=== PATIENT | male | born 1990 | race Two or more races ===

== ENCOUNTER 2019-09-22 14:56 | Inpatient (IN) | payer BC, MEDICAID, OTHER, SELFPAY ==
[~2019-09-22] VITALS: Ht 172.7 cm; Wt 69.5 kg
--- NOTE | 2019-09-22 15:13 | NUR ---
EKG DONE IN TRIAGE
[2019-09-22 15:53] LABS: BASOPHILS # (AUTO) 0.02 x10^3/uL (0-0.1); BASOPHILS % (AUTO) 0 % (0-1); EOSINOPHILS # (AUTO) 0.01 x10^3/uL (0-0.4); EOSINOPHILS % (AUTO) 0 % (1-7); LYMPHOCYTES # (AUTO) 0.91 x10^3/uL (1-3.4); LYMPHOCYTES % (AUTO) 6 % (22-44); MD NO; MEAN CORPUSCULAR HEMOGLOBIN 31.1 pg (27.5-34.5); MEAN CORPUSCULAR HGB CONC 34.2 g/dL (33.2-36.2); MEAN CORPUSCULAR VOLUME 90.9 fL (81-97); MEAN PLATELET VOLUME 8.9 fL (7.4-10.4); MONOCYTES % (AUTO) 6 % (2-9); NEUTROPHILS # (AUTO) 12.71 x10^3/uL (1.8-6.8); NEUTROPHILS % (AUTO) 87 % (42-75); PLATELET COUNT 287 x10^3/uL (130-400); RED BLOOD COUNT 4.39 x10^6/uL (4.38-5.82)
[2019-09-22 16:00] LABS: ALBUMIN 3.2 g/dL (3.4-5.0); ANION GAP 15 mmol/L (5-15); CALCIUM 9.7 mg/dL (8.5-10.1); CHLORIDE 97 mmol/L (98-107)
[2019-09-22 16:03] LABS: ALANINE AMINOTRANSFERASE 13 U/L (12-78); ALKALINE PHOSPHATASE 199 U/L (45-117); BILIRUBIN,TOTAL 1.1 mg/dL (0.2-1.0); CREATININE 0.84 mg/dL (0.7-1.3); TOTAL PROTEIN 8.5 g/dL (6.4-8.2)
--- NOTE | 2019-09-22 16:17 | NUR ---
NEONATAL DOCTOR: PT AMBULATORY WITH STEADY GAIT TO ROOM AT THIS TIME. LUIS
--- NOTE | 2019-09-22 16:33 | NUR ---
PATIENT ARRIVES UNABLE TO VOID THAT BEGAN AROUND 5 THIS MORNING. BLADDER SCANNED HIM AFTER HE VOIDED AND HE REGISTERS >999ML IN BLADDER SCAN X3 SCANS. HE IS TYPE ONE DIABETIC. HE HAS BACK PAIN.
[2019-09-22] MEDS ORDERED: LIDOCAINE 2%,20 ML JEL.PF.APP MM ONE ×2 (16:48→17:00)
[2019-09-22 16:59] LABS: HCT (SEDRATE) 38.1 % (39.2-51.8)
[2019-09-22 17:10] LABS: MICROSCOPIC INDICATED
[2019-09-22 17:17] LABS: CULTURE INDICATED? YES
--- NOTE | 2019-09-22 18:06 | NUR ---
PATIENT IN RADIOLOGY
--- NOTE | 2019-09-22 18:17 | NUR ---
STILL IN RADIOLOGY
[2019-09-22] MEDS ORDERED: SODIUM CHLORIDE 0.9% 1,000ML IVBOLUS ONE ×2 (18:30→19:30)
--- NOTE | 2019-09-22 18:33 | NUR ---
PATIENT STILL IN RADIOLOGY
[2019-09-22] MEDS ORDERED: GADOTERATE 7.5 MMOL/15 ML SYR ONE (18:36)
--- NOTE | 2019-09-22 18:57 | NUR ---
report from [facility]. assuming care at this time.
--- NOTE | 2019-09-22 19:29 | NUR ---
Spoke with Ganesh from OR who states he will call in OR team for a Thoracic Laminectomy per Dr. Corona and Dr. Kirkland's (Neurosurgey) request.
[2019-09-22] MEDS ORDERED: CEFTRIAXONE PMX 1GM/50ML 50 ML IV ONE (19:30)
[2019-09-22] MEDS ORDERED: SODIUM CHLORIDE FLUSH 10ML SYR IVF ONE (19:30)
[2019-09-22] MEDS ORDERED: VANCOMYCIN 1,600 MG in SODIUM CHLORIDE 0.9% 250 ML IV ONE (19:30)
[2019-09-22] MEDS ORDERED: PHARMACOKINETIC CONSULTATION MC ONE ×2 (19:30→23:45)
[2019-09-22] MEDS ORDERED: VANCOMYCIN PER PHARMACY MC PRN ×2 (19:30→20:00)
[2019-09-22] MEDS ORDERED: MORPHINE SULFATE 4 MG/ML, 1ML ONE (19:33)
[2019-09-22] MEDS ORDERED: CEFTRIAXONE PMX 1GM/50ML 50 ML ONE (19:33)
[2019-09-22] MEDS ORDERED: TOUJEO SOLOSTAR (19:38)
[2019-09-22] MEDS ORDERED: NOVALOG (19:38)
[2019-09-22] MEDS: MORPHINE SULFATE 4 MG/ML, 1ML IVPush PRN (19:40)
--- NOTE | 2019-09-22 19:45 | NUR ---
report to or.
[2019-09-22] MEDS ORDERED: BACITRACIN 50,000 UNIT ONE ×2 (19:48→20:43)
[2019-09-22] MEDS ORDERED: BUPIVACAINE/PF-EPI 0.5% 1:200K ONE (19:48)
--- NOTE | 2019-09-22 19:48 | NUR ---
pt back from or. pt states pain is 8/10 in mid back. vss. lab to bs to draw bc. per supervisor laboratory animal facility, pt's iv was displaced during mri. piv reestablished and 2nd set bs drawn. new orders received. iv rocephin and vanco started. Dr. Corona to bs to update on results and poc. mri revealed spinal abscess. plan for or then icu. or tech to bs for transport at this time.
[2019-09-22] MEDS: AMPICILLIN/SULBACTAM 3 GM in SODIUM CHLORIDE 0.9% 100 ML IV SCH (20:00)
--- NOTE | 2019-09-22 20:00 | NUR ---
pt received 1g rocephin prior to transfer to or. order changed to unasyn after administration of rocephin. unasyn not given. edmd aware. or tech aware.
[2019-09-22] MEDS ORDERED: MIDAZOLAM 1 MG/ML, 2ML ONE (20:07)
[2019-09-22] MEDS ORDERED: FENTANYL PF 250 MCG/5ML ONE (20:07)
[2019-09-22] MEDS ORDERED: VANCOMYCIN 1,000 MG ONE (20:43)
[2019-09-22] MEDS ORDERED: SUCCINYLCHOLINE 20 MG/ML, 10ML ONE (20:46)
[2019-09-22] MEDS ORDERED: SUGAMMADEX 200 MG/2 ML IVPush ONE (20:46)
[2019-09-22] MEDS ORDERED: DEXAMETHASONE 4 MG/ML, 1ML ONE (20:46)
[2019-09-22] MEDS ORDERED: PROPOFOL 10 MG/ML, 20ML ONE (20:46)
[2019-09-22] MEDS ORDERED: ONDANSETRON 2MG/ML, 2ML ONE (20:46)
[2019-09-22 21:20] LABS: AMPHETAMINE SCREEN, URINE Negative (Negative); BARBITURATE SCREEN, URINE Negative (Negative); BENZODIAZEPINE SCREEN, URINE Negative (Negative); CANNABINOID SCREEN, URINE Positive (Negative); COCAINE SCREEN, URINE Positive (Negative); METHADONE SCREEN, URINE Negative (Negative); OPIATE SCREEN, URINE Positive (Negative)
[2019-09-22] MEDS ORDERED: FENTANYL PF 100 MCG/2ML IV PRN (21:30)
[2019-09-22] MEDS ORDERED: hydrALAzine 20 MG/ML, 1ML IV PRN (21:30)
[2019-09-22] MEDS ORDERED: ONDANSETRON 2MG/ML, 2ML IV PRN (21:30)
[2019-09-22] MEDS ORDERED: LORazepam 2 MG/ML, 1ML IVPush PRN (21:30)
[2019-09-22] MEDS ORDERED: OXYcodone 5 MG/5 ML ORAL.SOL UDC PO PRN (21:30)
[2019-09-22] MEDS ORDERED: KETOROLAC 30 MG/1 ML IV PRN (21:30)
[2019-09-22] MEDS ORDERED: MEPERIDINE/PF 25MG/ML,1ML IVPush PRN (21:30)
[2019-09-22] MEDS ORDERED: HYDROmorphone 2 MG/ML, 1ML IVPush PRN (21:30)
[2019-09-22] MEDS ORDERED: ACETAMINOPHEN 325 MG TABLET PO PRN (21:30)
[2019-09-22] MEDS ORDERED: LABETALOL 5MG/ML, 20ML IV PRN (21:30)
[2019-09-22] MEDS ORDERED: MAGNESIUM HYDROXIDE 8%, 30ML UDC PO PRN (23:00)
[2019-09-22] MEDS: CYCLOBENZAPRINE 10 MG TABLET PO SCH (23:00)
[2019-09-22] MEDS ORDERED: NS + 20MEQ KCL 1,000 ML IV SCH (23:00)
[2019-09-22] MEDS ORDERED: PROMETHAZINE 25 MG/ML, 1ML IM PRN (23:00)
[2019-09-22] MEDS ORDERED: ONDANSETRON 2MG/ML, 2ML IVPush PRN (23:00)
[2019-09-22] MEDS ORDERED: PHARMACY MAY ADJ FOR RENAL FX MC PRN (23:00)
[2019-09-22] MEDS ORDERED: SENNA/DOCUSATE TABLET PO PRN (23:00)
[2019-09-22] MEDS ORDERED: DIPHENHYDRAMINE 50 MG CAPSULE PO PRN (23:00)
[2019-09-22] MEDS ORDERED: INSULIN REGULAR 100 UNITS/ML, 3ML VIAL SQ-INSULIN SCH (23:05)
[2019-09-22] MEDS ORDERED: INSULIN SINGLE DOSE, ER ONE (23:12)
[2019-09-22] MEDS ORDERED: FENTANYL PF 100 MCG/2ML ONE (23:20)
[2019-09-22] MEDS ORDERED: OXYcodone 5 MG/5 ML ORAL.SOL UDC ONE (23:21)
[2019-09-22] MEDS ORDERED: PHARMACOKINETIC MONITORING MC PRN (23:45)
[2019-09-23] MEDS: MORPHINE SULFATE 4 MG/ML, 1ML IVPush PRN ×2 (00:11→18:18)
[2019-09-23] MEDS: CEFAZOLIN PMX 1GM/50ML 50 ML IVPB SCH ×2 (00:11→05:57)
[2019-09-23 00:42] VITALS: BP 131/63
[2019-09-23 00:45] VITALS: BP 131/63
[2019-09-23] MEDS ORDERED: INSULIN GLARGINE 100 UNITS/ML, PEN SQ-INSULIN SCH ×3 (01:00→21:00)
[2019-09-23] MEDS ORDERED: hydrALAzine 20 MG/ML, 1ML IVPush PRN (01:00)
[2019-09-23] MEDS ORDERED: ONDANSETRON 2MG/ML, 2ML IVPush PRN (01:00)
[2019-09-23] MEDS ORDERED: THIAMINE 200 MG in SODIUM CHLORIDE 0.9% 50 ML IV ONE (01:00)
[2019-09-23] MEDS: AMPICILLIN/SULBACTAM 3 GM in SODIUM CHLORIDE 0.9% 100 ML IV SCH ×4 (01:22→22:18)
[2019-09-23 04:08] LABS: ANION GAP 10 mmol/L (5-15); CALCIUM 8.5 mg/dL (8.5-10.1); CHLORIDE 106 mmol/L (98-107); CREATININE 0.76 mg/dL (0.7-1.3)
[2019-09-23 04:31] LABS: MEAN CORPUSCULAR HEMOGLOBIN 30.9 pg (27.5-34.5); MEAN CORPUSCULAR HGB CONC 33.9 g/dL (33.2-36.2); MEAN CORPUSCULAR VOLUME 91.2 fL (81-97); MEAN PLATELET VOLUME 8.6 fL (7.4-10.4); PLATELET COUNT 278 x10^3/uL (130-400); RED BLOOD COUNT 3.88 x10^6/uL (4.38-5.82); RED CELL DISTRIBUTION WIDTH 12.2 % (9.4-14.8)
[2019-09-23 05:10] LABS: MD YES
[2019-09-23 05:12] LABS: BAND#(MANUAL) 2.44 x10^3/uL; BANDS%(MANUAL) 13 % (0-7); LYMPH#(MANUAL) 1.13 x10^3/uL (1-3.4); LYMPHS% (MANUAL) 6 % (22-44); SEG#(MANUAL) 15.23 x10^3/uL (1.8-6.8); SEGS% (MANUAL) 81 % (42-75)
[2019-09-23 05:13] LABS: <PLATELET ESTIMATE> ADEQUATE; <PLT MORPHOLOGY> NORMAL PLT MORPH; <RBC MORPHOLOGY> NORMAL
[2019-09-23] MEDS ORDERED: SODIUM CHLORIDE 0.9% 1,000 ML IV SCH (07:00)
[2019-09-23] MEDS ORDERED: INSULIN LISPRO 100 UNITS/ML, PEN SQ-INSULIN SCH ×2 (07:00→12:00)
[2019-09-23] MEDS: THIAMINE 100MG TABLET PO SCH (08:54)
[2019-09-23] MEDS: CYCLOBENZAPRINE 10 MG TABLET PO SCH ×3 (08:54→21:52)
[2019-09-23] MEDS: SENNA/DOCUSATE TABLET PO SCH (08:54)
[2019-09-23] MEDS: VANCOMYCIN 1,300 MG in SODIUM CHLORIDE 0.9% 250 ML IV SCH ×2 (10:08→20:30)
[2019-09-23] MEDS: OXYcodone 5 MG/5 ML ORAL.SOL UDC PO PRN ×2 (12:40→15:41)
[2019-09-23] MEDS: INSULIN LISPRO 100 UNITS/ML, PEN SQ-INSULIN SCH ×2 (17:10→20:34)
[2019-09-24] MEDS: INSULIN LISPRO 100 UNITS/ML, PEN SQ-INSULIN SCH ×6 (00:19→20:37)
[2019-09-24] MEDS: OXYcodone 5 MG/5 ML ORAL.SOL UDC PO PRN ×8 (01:46→23:44)
[2019-09-24] MEDS: AMPICILLIN/SULBACTAM 3 GM in SODIUM CHLORIDE 0.9% 100 ML IV SCH ×2 (04:28→10:03)
[2019-09-24 04:36] LABS: MEAN CORPUSCULAR HEMOGLOBIN 31.1 pg (27.5-34.5); MEAN CORPUSCULAR HGB CONC 34.3 g/dL (33.2-36.2); MEAN CORPUSCULAR VOLUME 90.7 fL (81-97); MEAN PLATELET VOLUME 8.6 fL (7.4-10.4); PLATELET COUNT 296 x10^3/uL (130-400); RED BLOOD COUNT 3.51 x10^6/uL (4.38-5.82); RED CELL DISTRIBUTION WIDTH 12.3 % (9.4-14.8)
[2019-09-24 04:39] LABS: ANION GAP 10 mmol/L (5-15); CALCIUM 8.6 mg/dL (8.5-10.1); CHLORIDE 100 mmol/L (98-107); CREATININE 0.65 mg/dL (0.7-1.3)
[2019-09-24 04:54] LABS: MD YES
[2019-09-24 04:55] LABS: <PLATELET ESTIMATE> ADEQUATE; <PLT MORPHOLOGY> NORMAL PLT MORPH; <RBC MORPHOLOGY> NORMAL; BANDS%(MANUAL) 5 % (0-7); LYMPHS% (MANUAL) 5 % (22-44); MONOS#(MANUAL) 1.08 x10^3/uL (0.3-2.7); MONOS% (MANUAL) 6 % (2-9); SEG#(MANUAL) 15.12 x10^3/uL (1.8-6.8); SEGS% (MANUAL) 84 % (42-75)
[2019-09-24] MEDS: CYCLOBENZAPRINE 10 MG TABLET PO SCH ×3 (07:59→20:34)
[2019-09-24] MEDS: THIAMINE 100MG TABLET PO SCH (07:59)
[2019-09-24] MEDS: SENNA/DOCUSATE TABLET PO SCH (08:00)
[2019-09-24] MEDS: INSULIN GLARGINE 100 UNITS/ML, PEN SQ-INSULIN SCH ×2 (08:00→20:37)
[2019-09-24] MEDS: VANCOMYCIN 1,300 MG in SODIUM CHLORIDE 0.9% 250 ML IV SCH (08:07)
[2019-09-24] MEDS ORDERED: VANCOMYCIN 1,400 MG in SODIUM CHLORIDE 0.9% 250 ML IV SCH ×2 (14:00→16:00)
[2019-09-24] MEDS ORDERED: CEFAZOLIN 2,000 MG in SODIUM CHLORIDE 0.9% 50 ML IV SCH (14:30)
[2019-09-24] MEDS: CEFAZOLIN PMX 2GM/50ML 50 ML IVPB SCH ×2 (16:58→22:02)
[2019-09-24] MEDS: TRAZODONE 50MG TABLET PO PRN (23:43)
[2019-09-25] MEDS: OXYcodone 5 MG/5 ML ORAL.SOL UDC PO PRN ×7 (02:57→22:17)
[2019-09-25 03:44] VITALS: BP 161/88
[2019-09-25] MEDS: MORPHINE SULFATE 4 MG/ML, 1ML IVPush PRN ×2 (03:49→23:51)
[2019-09-25 05:22] LABS: ANION GAP 8 mmol/L (5-15); CALCIUM 8.5 mg/dL (8.5-10.1); CHLORIDE 97 mmol/L (98-107); CREATININE 0.59 mg/dL (0.7-1.3)
[2019-09-25 05:27] LABS: MEAN CORPUSCULAR HEMOGLOBIN 30.8 pg (27.5-34.5); MEAN CORPUSCULAR VOLUME 90.6 fL (81-97); MEAN PLATELET VOLUME 8.3 fL (7.4-10.4); PLATELET COUNT 301 x10^3/uL (130-400); RED BLOOD COUNT 3.46 x10^6/uL (4.38-5.82); RED CELL DISTRIBUTION WIDTH 12.5 % (9.4-14.8)
[2019-09-25 06:03] LABS: BASOPHILS # (AUTO) 0.05 x10^3/uL (0-0.1); BASOPHILS % (AUTO) 0 % (0-1); EOSINOPHILS # (AUTO) 0.03 x10^3/uL (0-0.4); EOSINOPHILS % (AUTO) 0 % (1-7); LYMPHOCYTES # (AUTO) 0.95 x10^3/uL (1-3.4); LYMPHOCYTES % (AUTO) 7 % (22-44); MD SCAN; MONOCYTES # (AUTO) 0.95 x10^3/uL (0.2-0.8); MONOCYTES % (AUTO) 7 % (2-9); NEUTROPHILS # (AUTO) 12.16 x10^3/uL (1.8-6.8); NEUTROPHILS % (AUTO) 86 % (42-75)
[2019-09-25] MEDS: CEFAZOLIN PMX 2GM/50ML 50 ML IVPB SCH ×3 (06:30→23:03)
[2019-09-25 06:40] VITALS: BP 159/99
[2019-09-25] MEDS: CYCLOBENZAPRINE 10 MG TABLET PO SCH ×3 (07:45→21:34)
[2019-09-25] MEDS: SENNA/DOCUSATE TABLET PO SCH (07:45)
[2019-09-25] MEDS: THIAMINE 100MG TABLET PO SCH (07:46)
[2019-09-25] MEDS: INSULIN GLARGINE 100 UNITS/ML, PEN SQ-INSULIN SCH ×2 (07:49→21:34)
[2019-09-25] MEDS: INSULIN LISPRO 100 UNITS/ML, PEN SQ-INSULIN SCH ×4 (07:50→21:35)
[2019-09-25 13:45] VITALS: BP 138/87
[2019-09-25 20:07] VITALS: BP 137/90
[2019-09-25] MEDS: TRAZODONE 50MG TABLET PO PRN (21:34)
[2019-09-26] MEDS: BISACODYL 10 MG SUPP PR PRN (00:04)
[2019-09-26 01:18] VITALS: BP 149/92
[2019-09-26] MEDS: OXYcodone 5 MG/5 ML ORAL.SOL UDC PO PRN ×3 (03:44→10:37)
[2019-09-26 06:05] LABS: BASOPHILS # (AUTO) 0.05 x10^3/uL (0-0.1); BASOPHILS % (AUTO) 1 % (0-1); EOSINOPHILS # (AUTO) 0.09 x10^3/uL (0-0.4); EOSINOPHILS % (AUTO) 1 % (1-7); LYMPHOCYTES # (AUTO) 0.93 x10^3/uL (1-3.4); LYMPHOCYTES % (AUTO) 10 % (22-44); MD NO; MEAN CORPUSCULAR HEMOGLOBIN 30.5 pg (27.5-34.5); MEAN CORPUSCULAR HGB CONC 34.1 g/dL (33.2-36.2); MEAN CORPUSCULAR VOLUME 89.4 fL (81-97); MEAN PLATELET VOLUME 7.7 fL (7.4-10.4); MONOCYTES # (AUTO) 0.82 x10^3/uL (0.2-0.8); MONOCYTES % (AUTO) 9 % (2-9); NEUTROPHILS # (AUTO) 7.41 x10^3/uL (1.8-6.8); NEUTROPHILS % (AUTO) 80 % (42-75); PLATELET COUNT 327 x10^3/uL (130-400); RED BLOOD COUNT 3.37 x10^6/uL (4.38-5.82); RED CELL DISTRIBUTION WIDTH 12.3 % (9.4-14.8)
[2019-09-26 06:10] LABS: CHLORIDE 97 mmol/L (98-107)
[2019-09-26 06:14] LABS: ANION GAP 8 mmol/L (5-15); CALCIUM 8.4 mg/dL (8.5-10.1); CREATININE 0.58 mg/dL (0.7-1.3)
[2019-09-26] MEDS: CEFAZOLIN PMX 2GM/50ML 50 ML IVPB SCH ×3 (06:30→22:58)
[2019-09-26 07:15] VITALS: BP 127/78
[2019-09-26] MEDS: INSULIN LISPRO 100 UNITS/ML, PEN SQ-INSULIN SCH ×4 (08:01→21:15)
[2019-09-26] MEDS: SENNA/DOCUSATE TABLET PO SCH (08:02)
[2019-09-26] MEDS: INSULIN GLARGINE 100 UNITS/ML, PEN SQ-INSULIN SCH ×2 (08:02→21:15)
[2019-09-26] MEDS: CYCLOBENZAPRINE 10 MG TABLET PO SCH ×3 (08:02→21:15)
[2019-09-26] MEDS: THIAMINE 100MG TABLET PO SCH (08:02)
[2019-09-26] MEDS: POTASSIUM CHLORIDE 20 MEQ TAB.ER.PRT PO SCH ×3 (10:41→16:58)
[2019-09-26 13:35] VITALS: BP 124/81
[2019-09-26] MEDS: OXYcodone IR 5MG TABLET PO PRN ×4 (13:50→23:53)
[2019-09-26 20:38] VITALS: BP 122/83
[2019-09-26] MEDS: ACETAMINOPHEN 325 MG TABLET PO PRN (20:43)
[2019-09-27 02:18] VITALS: BP 114/73
[2019-09-27] MEDS: OXYcodone IR 5MG TABLET PO PRN ×7 (03:01→22:46)
[2019-09-27] MEDS: ACETAMINOPHEN 325 MG TABLET PO PRN ×3 (03:01→16:11)
[2019-09-27 05:07] LABS: BASOPHILS # (AUTO) 0.03 x10^3/uL (0-0.1); BASOPHILS % (AUTO) 0 % (0-1); EOSINOPHILS # (AUTO) 0.13 x10^3/uL (0-0.4); EOSINOPHILS % (AUTO) 2 % (1-7); LYMPHOCYTES # (AUTO) 0.99 x10^3/uL (1-3.4); LYMPHOCYTES % (AUTO) 12 % (22-44); MD NO; MEAN CORPUSCULAR HEMOGLOBIN 30.8 pg (27.5-34.5); MEAN CORPUSCULAR VOLUME 90.5 fL (81-97); MEAN PLATELET VOLUME 7.8 fL (7.4-10.4); MONOCYTES # (AUTO) 0.82 x10^3/uL (0.2-0.8); MONOCYTES % (AUTO) 10 % (2-9); NEUTROPHILS # (AUTO) 6.25 x10^3/uL (1.8-6.8); NEUTROPHILS % (AUTO) 76 % (42-75); PLATELET COUNT 423 x10^3/uL (130-400); RED BLOOD COUNT 3.33 x10^6/uL (4.38-5.82); RED CELL DISTRIBUTION WIDTH 12.6 % (9.4-14.8)
[2019-09-27 05:12] LABS: ANION GAP 5 mmol/L (5-15); CALCIUM 8.7 mg/dL (8.5-10.1); CHLORIDE 99 mmol/L (98-107); CREATININE 0.53 mg/dL (0.7-1.3)
[2019-09-27] MEDS: CEFAZOLIN PMX 2GM/50ML 50 ML IVPB SCH ×3 (06:10→22:47)
[2019-09-27 06:53] VITALS: BP 134/86
[2019-09-27] MEDS: INSULIN LISPRO 100 UNITS/ML, PEN SQ-INSULIN SCH ×4 (07:00→21:47)
[2019-09-27] MEDS: SENNA/DOCUSATE TABLET PO SCH (08:53)
[2019-09-27] MEDS: THIAMINE 100MG TABLET PO SCH (08:54)
[2019-09-27] MEDS: CYCLOBENZAPRINE 10 MG TABLET PO SCH ×3 (08:54→21:47)
[2019-09-27] MEDS ORDERED: INSULIN GLARGINE 100 UNITS/ML, PEN SQ-INSULIN ONE (09:00)
[2019-09-27] MEDS: INSULIN GLARGINE 100 UNITS/ML, PEN SQ-INSULIN SCH ×2 (09:00→21:46)
[2019-09-27 13:41] VITALS: BP 122/80
[2019-09-27 19:08] VITALS: BP 124/76
[2019-09-27] MEDS: MORPHINE SULFATE 4 MG/ML, 1ML IVPush PRN (22:03)
[2019-09-27] MEDS: BISACODYL 10 MG SUPP PR PRN (22:46)
[2019-09-28 00:40] VITALS: BP 119/83
[2019-09-28] MEDS: OXYcodone IR 5MG TABLET PO PRN ×7 (02:03→22:11)
[2019-09-28] MEDS: MORPHINE SULFATE 4 MG/ML, 1ML IVPush PRN ×3 (02:03→20:40)
[2019-09-28] MEDS: CYCLOBENZAPRINE 10 MG TABLET PO SCH ×3 (05:33→20:40)
[2019-09-28 06:11] LABS: CHLORIDE 98 mmol/L (98-107)
[2019-09-28 06:12] LABS: BASOPHILS % (AUTO) 0 % (0-1); EOSINOPHILS # (AUTO) 0.16 x10^3/uL (0-0.4); EOSINOPHILS % (AUTO) 2 % (1-7); LYMPHOCYTES # (AUTO) 1.35 x10^3/uL (1-3.4); LYMPHOCYTES % (AUTO) 14 % (22-44); MD NO; MEAN CORPUSCULAR HEMOGLOBIN 30.5 pg (27.5-34.5); MEAN CORPUSCULAR HGB CONC 33.9 g/dL (33.2-36.2); MEAN CORPUSCULAR VOLUME 89.9 fL (81-97); MEAN PLATELET VOLUME 7.5 fL (7.4-10.4); MONOCYTES # (AUTO) 0.79 x10^3/uL (0.2-0.8); MONOCYTES % (AUTO) 8 % (2-9); NEUTROPHILS # (AUTO) 7.28 x10^3/uL (1.8-6.8); NEUTROPHILS % (AUTO) 76 % (42-75); PLATELET COUNT 520 x10^3/uL (130-400); RED BLOOD COUNT 3.38 x10^6/uL (4.38-5.82); RED CELL DISTRIBUTION WIDTH 12.6 % (9.4-14.8)
[2019-09-28 06:15] LABS: ANION GAP 9 mmol/L (5-15); CALCIUM 8.7 mg/dL (8.5-10.1); CREATININE 0.65 mg/dL (0.7-1.3)
[2019-09-28] MEDS: CEFAZOLIN PMX 2GM/50ML 50 ML IVPB SCH ×3 (06:45→23:11)
[2019-09-28 06:56] VITALS: BP 128/79
[2019-09-28] MEDS: INSULIN LISPRO 100 UNITS/ML, PEN SQ-INSULIN SCH ×4 (07:58→20:41)
[2019-09-28] MEDS: THIAMINE 100MG TABLET PO SCH (08:46)
[2019-09-28] MEDS: SENNA/DOCUSATE TABLET PO SCH (08:46)
[2019-09-28] MEDS: INSULIN GLARGINE 100 UNITS/ML, PEN SQ-INSULIN SCH ×2 (08:47→20:42)
[2019-09-28 12:27] VITALS: BP 124/81
[2019-09-28 19:52] VITALS: BP 138/89
[2019-09-29] MEDS: OXYcodone IR 5MG TABLET PO PRN ×6 (01:19→22:59)
[2019-09-29 01:35] VITALS: BP 132/83
[2019-09-29] MEDS: MORPHINE SULFATE 4 MG/ML, 1ML IVPush PRN (03:30)
[2019-09-29 05:29] LABS: CHLORIDE 101 mmol/L (98-107)
[2019-09-29 05:32] LABS: MEAN CORPUSCULAR HEMOGLOBIN 30.2 pg (27.5-34.5); MEAN CORPUSCULAR HGB CONC 33.8 g/dL (33.2-36.2); MEAN CORPUSCULAR VOLUME 89.4 fL (81-97); MEAN PLATELET VOLUME 7.5 fL (7.4-10.4); PLATELET COUNT 574 x10^3/uL (130-400); RED BLOOD COUNT 3.43 x10^6/uL (4.38-5.82); RED CELL DISTRIBUTION WIDTH 12.3 % (9.4-14.8)
[2019-09-29 05:44] LABS: ALANINE AMINOTRANSFERASE 13 U/L (12-78); ALBUMIN 1.8 g/dL (3.4-5.0); ALKALINE PHOSPHATASE 152 U/L (45-117); ANION GAP 7 mmol/L (5-15); BILIRUBIN,TOTAL 0.3 mg/dL (0.2-1.0); CALCIUM 8.8 mg/dL (8.5-10.1); CREATININE 0.65 mg/dL (0.7-1.3); TOTAL PROTEIN 7.5 g/dL (6.4-8.2)
[2019-09-29 06:06] LABS: BASOPHILS # (AUTO) 0.03 x10^3/uL (0-0.1); BASOPHILS % (AUTO) 0 % (0-1); EOSINOPHILS # (AUTO) 0.17 x10^3/uL (0-0.4); EOSINOPHILS % (AUTO) 2 % (1-7); LYMPHOCYTES # (AUTO) 1.25 x10^3/uL (1-3.4); LYMPHOCYTES % (AUTO) 14 % (22-44); MD SCAN; MONOCYTES # (AUTO) 0.97 x10^3/uL (0.2-0.8); MONOCYTES % (AUTO) 11 % (2-9); NEUTROPHILS # (AUTO) 6.67 x10^3/uL (1.8-6.8); NEUTROPHILS % (AUTO) 73 % (42-75); SEDIMENTATION RATE > 120 mm/hr (0-10)
[2019-09-29 06:07] LABS: HCT (SEDRATE) 30.7 % (39.2-51.8)
[2019-09-29] MEDS: CEFAZOLIN PMX 2GM/50ML 50 ML IVPB SCH ×2 (06:37→16:10)
[2019-09-29 07:06] VITALS: BP 136/92
[2019-09-29] MEDS: INSULIN LISPRO 100 UNITS/ML, PEN SQ-INSULIN SCH ×4 (07:41→21:22)
[2019-09-29] MEDS: THIAMINE 100MG TABLET PO SCH (07:56)
[2019-09-29] MEDS: SENNA/DOCUSATE TABLET PO SCH (07:56)
[2019-09-29] MEDS: CYCLOBENZAPRINE 10 MG TABLET PO SCH ×3 (07:56→22:59)
[2019-09-29] MEDS: INSULIN GLARGINE 100 UNITS/ML, PEN SQ-INSULIN SCH ×2 (07:58→21:22)
[2019-09-29] MEDS: METHOCARBAMOL 500 MG TABLET PO PRN ×2 (11:14→19:30)
[2019-09-29] MEDS: ACETAMINOPHEN 325 MG TABLET PO PRN ×2 (12:06→16:10)
[2019-09-29] MEDS: DAPTOMYCIN 650 MG in SODIUM CHLORIDE 0.9% 100 ML IV SCH (19:30)
[2019-09-29 19:50] VITALS: BP 128/83
[2019-09-30] MEDS: OXYcodone IR 5MG TABLET PO PRN ×5 (02:10→21:20)
[2019-09-30] MEDS: METHOCARBAMOL 500 MG TABLET PO PRN ×2 (02:10→17:38)
[2019-09-30 02:20] VITALS: BP 123/80
[2019-09-30] MEDS: ACETAMINOPHEN 325 MG TABLET PO PRN (05:10)
[2019-09-30] MEDS: MORPHINE SULFATE 4 MG/ML, 1ML IVPush PRN (05:11)
[2019-09-30 05:44] LABS: MEAN CORPUSCULAR HEMOGLOBIN 31.2 pg (27.5-34.5); MEAN CORPUSCULAR HGB CONC 34.6 g/dL (33.2-36.2); MEAN PLATELET VOLUME 7.3 fL (7.4-10.4); PLATELET COUNT 653 x10^3/uL (130-400); RED BLOOD COUNT 3.44 x10^6/uL (4.38-5.82); RED CELL DISTRIBUTION WIDTH 12.4 % (9.4-14.8)
[2019-09-30 05:53] LABS: ANION GAP 7 mmol/L (5-15); CALCIUM 9.2 mg/dL (8.5-10.1); CHLORIDE 102 mmol/L (98-107); CREATININE 0.59 mg/dL (0.7-1.3)
[2019-09-30 05:55] LABS: CREATINE KINASE, TOTAL 29 U/L (39-308)
[2019-09-30 06:11] LABS: BASOPHILS # (AUTO) 0.01 x10^3/uL (0-0.1); BASOPHILS % (AUTO) 0 % (0-1); EOSINOPHILS # (AUTO) 0.25 x10^3/uL (0-0.4); EOSINOPHILS % (AUTO) 2 % (1-7); LYMPHOCYTES # (AUTO) 1.64 x10^3/uL (1-3.4); LYMPHOCYTES % (AUTO) 16 % (22-44); MD SCAN; MONOCYTES # (AUTO) 0.93 x10^3/uL (0.2-0.8); MONOCYTES % (AUTO) 9 % (2-9); NEUTROPHILS # (AUTO) 7.56 x10^3/uL (1.8-6.8); NEUTROPHILS % (AUTO) 73 % (42-75)
[2019-09-30 07:38] VITALS: BP 127/82
[2019-09-30] MEDS: INSULIN LISPRO 100 UNITS/ML, PEN SQ-INSULIN SCH ×4 (07:43→21:19)
[2019-09-30] MEDS: THIAMINE 100MG TABLET PO SCH (08:40)
[2019-09-30] MEDS: SENNA/DOCUSATE TABLET PO SCH (08:40)
[2019-09-30] MEDS: INSULIN GLARGINE 100 UNITS/ML, PEN SQ-INSULIN SCH ×2 (08:40→21:20)
[2019-09-30] MEDS: CYCLOBENZAPRINE 10 MG TABLET PO SCH ×3 (08:40→21:20)
[2019-09-30] MEDS ORDERED: TAMSULOSIN 0.4 MG CAP.ER.24H PO ONE (13:30)
[2019-09-30 13:42] VITALS: BP 126/77
[2019-09-30] MEDS ORDERED: GADOTERATE 7.5 MMOL/15 ML SYR ONE (16:59)
[2019-09-30 19:40] VITALS: BP 124/82
[2019-09-30] MEDS: DAPTOMYCIN 650 MG in SODIUM CHLORIDE 0.9% 100 ML IV SCH (20:22)
[2019-10-01] MEDS: METHOCARBAMOL 500 MG TABLET PO PRN ×3 (00:16→16:19)
[2019-10-01] MEDS: OXYcodone IR 5MG TABLET PO PRN ×4 (00:16→18:20)
[2019-10-01 01:22] VITALS: BP 134/78
[2019-10-01 06:51] VITALS: BP 139/87
[2019-10-01] MEDS: INSULIN LISPRO 100 UNITS/ML, PEN SQ-INSULIN SCH ×3 (07:00→16:20)
[2019-10-01] MEDS: THIAMINE 100MG TABLET PO SCH (08:40)
[2019-10-01] MEDS: CYCLOBENZAPRINE 10 MG TABLET PO SCH ×2 (08:40→16:19)
[2019-10-01] MEDS: SENNA/DOCUSATE TABLET PO SCH (08:40)
[2019-10-01] MEDS: ACETAMINOPHEN 325 MG TABLET PO PRN ×2 (08:40→16:19)
[2019-10-01] MEDS: INSULIN GLARGINE 100 UNITS/ML, PEN SQ-INSULIN SCH (08:42)
[2019-10-01 13:52] VITALS: BP 125/81
[2019-10-01] MEDS: DAPTOMYCIN 650 MG in SODIUM CHLORIDE 0.9% 100 ML IV SCH (17:04)
[2019-10-01] MEDS ORDERED: OXYC5TAB3 PO (17:28)
[2019-10-01] MEDS ORDERED: DOCU-131 PO (17:28)
[2019-10-01 18:30] VITALS: BP 130/90
== END 2019-10-01 18:34 | disposition home or self-care (01) | DRG 853 ==
LOC: ED 16:55 → EDIP 19:17 → CCU 23:50 → 4NE 09-25 03:15
PROVIDERS: ADMIT Family Medicine; ATTEND Family Medicine
PROC: 0PC Upper Bones, Extirpation (ICD-10-PCS; 2019-09-22)
PROC: 00NX0ZZ Release Thoracic Spinal Cord, Open Approach (ICD-10-PCS; principal; 2019-09-22 19:00)
PROC: 02HV33Z Insertion of Infusion Device into Superior Vena Cava, Percutaneous Approach (ICD-10-PCS; 2019-09-26)
PROC: B5181ZA Fluoroscopy of Superior Vena Cava using Low Osmolar Contrast, Guidance (ICD-10-PCS; 2019-09-26)
PROC: B548ZZA Ultrasonography of Superior Vena Cava, Guidance (ICD-10-PCS; 2019-09-26)
DX: A41.01 Sepsis due to Methicillin susceptible Staphylococcus aureus (principal); G06.1 Intraspinal abscess and granuloma; E87.1 Hypo-osmolality and hyponatremia; M46.24 Osteomyelitis of vertebra, thoracic region; D63.8 Anemia in other chronic diseases classified elsewhere; E10.65 Type 1 diabetes mellitus with hyperglycemia; E10.69 Type 1 diabetes mellitus with other specified complication; E87.6 Hypokalemia; F14.10 Cocaine abuse, uncomplicated; M48.04 Spinal stenosis, thoracic region; M60.9 Myositis, unspecified; R33.8 Other retention of urine; Z79.4 Long term (current) use of insulin; Z79.899 Other long term (current) drug therapy; F10.10 Alcohol abuse, uncomplicated; Y90.9 Presence of alcohol in blood, level not specified
CPT/HCPCS: 36415; 36573; 72072; 72157; 72158; 76000; 80048; 80053; 80074; 80202; 80307; 81001; 82550; 82962; 83036; 83605; 83735; 84145; 85025; 85651; 86140; 87040; 87070; 87075; 87077; 87081; 87086; 87147; 87186; 87205; 87806; 93005; 93306; 93356; 96374; 96375; G0378; J0295; J0690; J0696; J0878; J1100; J2250; J2405; J2704; J3010; J3370; J3411; J3480; A9575; C1751; G0475; J0330; J1815; J2270; J7030; J7050

== ENCOUNTER → 2019-10-09 | Outpatient (CLI) | payer BC ==
[~2019-10-09] MED LIST: DOCU-131 PO; NOVALOG; OXYC5TAB3 PO; TOUJEO SOLOSTAR
== END | disposition home or self-care (01) ==
LOC: RAD 09:36 → EDSTATUS 09:45
PROVIDERS: ATTEND Nurse Practitioner Family
DX: R10.12 Left upper quadrant pain (principal); G06.2 Extradural and subdural abscess, unspecified
CPT/HCPCS: 76705

== ENCOUNTER → 2019-12-05 | Day surgery (SDC) | payer BC ==
[~2019-12-05] VITALS: Ht 172.7 cm; Wt 74.0 kg
[~2019-12-05] MED LIST changes: +CEPH-376 PO; +LIDOCAINE 1%, 10ML ONE
[2019-12-05 09:52] VITALS: BP 123/79
== END | disposition home or self-care (01) ==
LOC: OUT 09:26 → EDSTATUS 11:00
DX: G06.1 Intraspinal abscess and granuloma (principal); F12.90 Cannabis use, unspecified, uncomplicated; Z72.89 Other problems related to lifestyle; Z79.2 Long term (current) use of antibiotics; Z87.891 Personal history of nicotine dependence
CPT/HCPCS: 75989

== ENCOUNTER → 2019-12-11 | Outpatient (CLI) | payer BC ==
[~2019-12-11] MED LIST changes: +GADOTERATE 7.5 MMOL/15 ML SYR ONE; -LIDOCAINE 1%, 10ML ONE
== END | disposition home or self-care (01) ==
LOC: RAD 09:32
DX: M51.24 Other intervertebral disc displacement, thoracic region (principal); M51.34 Other intervertebral disc degeneration, thoracic region
CPT/HCPCS: 72157; A9575